=== PATIENT | male | born 1985 | race Caucasian/White ===

== ENCOUNTER 2017-12-15 15:36 | Emergency (ER) | payer MEDICAID ==
[2017-12-15] MEDS ORDERED: TDAP ADULT 0.5 ML INJ (BOOSTRIX) IM ONE (15:41)
--- NOTE | 2017-12-15 15:43 | EDPHY ---
H & P Time Seen by Provider: 12/15/17 15:41 HPI/ROS: CHIEF COMPLAINT: Right hand pain , medical screening for incarceration HISTORY OF PRESENT ILLNESS: 32-year-old homeless male arrives via police, in custody of police. States that as he was being arrested he fell impacting his right hand against the ground. Complaining of pain to the right 4th and 5th metacarpal as well as abrasion to the finger tips. He would also like me to evaluate area of tenderness to his left 1st and 5th digit which is subacute, not related to today's injury. Tetanus is out-of-date. Denies other injury. Denies head injury. Denies paresthesia. A ten point review of systems was performed and is negative with the exception of the items mentioned in the HPI PHYSICAL EXAM (Prior to examination, patient consented to physical exam, hands were washed and my usual and customary physical exam procedures followed) 1) GENERAL: Well-developed, well-nourished, alert and oriented. Appears to be in no acute distress. 2) HEAD: Normocephalic 3) HEENT: sclera anicteric 4) LUNGS: Breathing comfortably. 5) SKIN: Abrasion to the right 2nd digit distal phalanx. 6) MUSCULOSKELETAL: Right hand: Tender to palpation 2nd 3rd 4th metacarpal with no visible deformity. Abrasion to the 2nd digit distal phalanx. No signs of infection. Negative kanavel. Left hand: Left thumb and left pinky digit paronychia with lymphangitic streaking, Negative kanavel. 7) NEUROLOGIC: Full sensation two-point discrimination to all effect digits Constitutional: Initial Vital Signs Temperature (C) 36.6 C 12/15/17 15:43 Heart Rate 96 12/15/17 15:43 Blood Pressure 110/70 12/15/17 15:43 O2 Sat (%) 94 12/15/17 15:43 O2 Delivery Mode Room Air Allergies/Adverse Reactions: No Known Allergies Allergy (Unverified 12/15/17 15:55) Home Medications: Medication Instructions Recorded Cephalexin [Keflex] 500 mg PO TID 10 Days cap 12/15/17 NK [No Known Home Meds] 12/15/17 Sulfamethox/Tmp 800/160 mg 1 tab PO BID@1000,2200 10 Days tab 12/15/17 [Bactrim Ds] MDM/Departure - MDM Procedures: Procedure: Abscess drainage. The patient had a paronychia on the left 4th and 5th digit.. I obtained verbal consent from the patient to drain the abscess who was informed about the possibility of bleeding and pain. The abscesses was incised with a scalpel and a small amount of purulent drainage was expressed. I irrigated the wound and placed some packing. The patient tolerated the procedure well. The procedure was performed by myself. ED Course/Re-evaluation: Greeted on arrival by myself. Paronychia drained by myself. negative kanavel sign. Starting him on oral Keflex and Bactrim as he notes history of chronic skin infections. No known history of MRSA. His tetanus has updated. His primary complaint was right hand pain for which he was evaluated in the ER, x- ray performed showing no definitive fracture. Plan will be discharge. Follow up with the snf nurse. Usual and customary wound precautions instructions provided. Care of patient under supervision of secondary supervising physician Dr Rodríguez . - Depart Disposition: Home, Routine, Self-Care Clinical Impression: Paronychia of left little finger Condition: Good Instructions: Hand Sprain (ED) Additional Instructions: Return to the ER if you develop redness, swelling, discharge, warmth to the wound, red streaks going up your arm or any other symptoms that concern you. Prescriptions: Cephalexin [Keflex] 500 mg PO TID 10 Days cap Sulfamethox/Tmp 800/160 mg [Bactrim Ds] 1 tab PO BID@1000,2200 10 Days tab Referrals: Patient,NotPresent [Unknown] - As per Instructions
[2017-12-15 15:45] VITALS: BP 110/70; PULSE 96; TEMP 97.9; O2SAT 94
== END 2017-12-15 16:11 | disposition home or self-care (01) ==
PROC: 0H9GXZZ Drainage of Left Hand Skin, External Approach (ICD-10-PCS; principal; 2017-12-15)
DX: L03.012 Cellulitis of left finger (principal); Z23 Encounter for immunization; W01.198A Fall on same level from slipping, tripping and stumbling with subsequent striking against other object, initial encounter